=== PATIENT | female | born 1990 | race Two or more races ===

== ENCOUNTER 2021-06-17 06:00 | Day surgery (SDC) | payer OTHER ==
[~2021-06-17 06:00] MED LIST: SPRINTEC 28 DA1 EACH PO
[2021-06-17] MEDS ORDERED: MORGIDOX100 MG PO (10:25)
[2021-06-17] MEDS ORDERED: NAPR500T14 PO (10:25)
== END 2021-06-17 19:20 | disposition home or self-care (01) ==
LOC: CIR.AMB 06:00
PROVIDERS: ATTEND Obstetrics & Gynecology
DX: D25.0 Submucous leiomyoma of uterus (principal); N84.0 Polyp of corpus uteri; Z20.822 Contact with and (suspected) exposure to COVID-19